=== PATIENT | male | born 1975 | race Caucasian/White ===

== ENCOUNTER 2018-06-05 09:43 | Day surgery (SDC) | payer OTHER ==
[~2018-06-05 09:43] MED LIST: CIPRO 400 MG/200 ML D5W IVPB; LIDOCAINE 2% (SDV) 5 ML INJ; ONDANSETRON 4 MG INJ; PROPOFOL 200 MG INJ; SEVOFLURANE 15 MIN
[2018-06-05] MEDS ORDERED: CIPROFLOXACIN 400 MG in D5W 200 ML IVPB (10:00)
[2018-06-05] MEDS ORDERED: PROPOFOL 20 ML (11:26)
[2018-06-05] MEDS ORDERED: FENTAnyl 50 MCG/ML VIAL (11:27)
[2018-06-05] MEDS ORDERED: MIDAZOLAM 1 MG/ML 2 ML INJ (11:28)
[2018-06-05] MEDS ORDERED: METOCLOPRAMIDE 10 MG INJ (11:29)
[2018-06-05] MEDS ORDERED: LIDOCAINE 2% (SDV) 5 ML INJ (11:34)
[2018-06-05] MEDS ORDERED: BUPIVACAINE 0.25% (MPF) 30 ML INJ (11:36)
[2018-06-05] MEDS ORDERED: hydrALAzine 20 MG INJ IV (13:00)
[2018-06-05] MEDS ORDERED: MEPERIDINE 25 MG INJ IV (13:00)
[2018-06-05] MEDS ORDERED: ONDANSETRON 4 MG INJ IV (13:00)
[2018-06-05] MEDS ORDERED: FENTAnyl 50 MCG/ML VIAL IV ×2 (13:00)
[2018-06-05] MEDS ORDERED: DIPHENHYDRAMINE 50 MG INJ IV (13:00)
[2018-06-05] MEDS ORDERED: LABETALOL HCL 20MG INJ IV (13:00)
[2018-06-05] MEDS ORDERED: HYDROmorphONE 1 MG/5 ML IV SYRINGE IV ×2 (13:00)
[2018-06-05] MEDS: IOHEXOL 300MG/ML 30 ML BTL (13:51)
[2018-06-05] MEDS: HYDROmorphONE 1 MG/5 ML IV SYRINGE IV (14:14)
== END 2018-06-05 15:45 | disposition home or self-care (01) ==
LOC: SDS 09:43
DX: D30.3 Benign neoplasm of bladder (principal); N30.20 Other chronic cystitis without hematuria; K63.2 Fistula of intestine; K57.30 Diverticulosis of large intestine without perforation or abscess without bleeding
CPT/HCPCS: 52234; 74430; 88305

== ENCOUNTER 2018-07-29 09:26 | Inpatient (IN) | payer OTHER ==
[2018-07-29] MEDS: CEFAZOLIN 2 GM/50 ML (PMX) 50 ML IVPB (09:30)
[2018-07-29] MEDS: SOD CHLORIDE 0.9% 1,000 ML IV (10:18)
[2018-07-29] MEDS: BUPIVACAINE 0.5%/EPI (SDV) 30 ML INJ (10:35)
[2018-07-29] MEDS ORDERED: PROPOFOL 20 ML (10:37)
[2018-07-29] MEDS ORDERED: MIDAZOLAM 1 MG/ML 2 ML INJ (10:37)
[2018-07-29] MEDS ORDERED: ROCURONIUM 50 MG INJ (10:37)
[2018-07-29] MEDS ORDERED: SUCCINYLCHOLINE CHLORIDE 100 MG/5 ML SYG IV (10:37)
[2018-07-29] MEDS ORDERED: LIDOCAINE 100 MG SYRINGE ×4 (10:37→16:11)
[2018-07-29] MEDS ORDERED: ONDANSETRON 4 MG INJ (10:38)
[2018-07-29] MEDS ORDERED: METOCLOPRAMIDE 10 MG INJ (10:38)
[2018-07-29] MEDS: AMPICILLIN/SULB 3 GM/NS (PMX) 100 ML IVPB ×2 (11:55→22:08)
[2018-07-29] MEDS ORDERED: FENTAnyl 50 MCG/ML VIAL IV (13:00)
[2018-07-29] MEDS ORDERED: morphine (1 MG/ML) 10ML SYRINGE IV (13:00)
[2018-07-29] MEDS ORDERED: hydrALAzine 20 MG INJ IV (13:00)
[2018-07-29] MEDS ORDERED: HYDROmorphONE 1 MG/5 ML IV SYRINGE IV (13:00)
[2018-07-29] MEDS ORDERED: DIPHENHYDRAMINE 50 MG INJ IV (13:00)
[2018-07-29] MEDS ORDERED: METOCLOPRAMIDE 10 MG INJ IV (13:00)
[2018-07-29] MEDS ORDERED: MEPERIDINE 25 MG INJ IV (13:00)
[2018-07-29] MEDS ORDERED: LORAZEPAM 2 MG INJ IV (13:00)
[2018-07-29] MEDS ORDERED: LABETALOL HCL 20MG INJ IV (13:00)
[2018-07-29] MEDS ORDERED: ONDANSETRON 4 MG INJ IV ×2 (13:00→15:00)
[2018-07-29] MEDS ORDERED: NALOXONE (0.4 MG/ML) INJ IV ×5 (13:30)
[2018-07-29] MEDS ORDERED: GLUCAGON 1 MG INJ (13:33)
[2018-07-29] MEDS ORDERED: BUPIVACAINE 0.25% (MPF) 30 ML INJ (14:08)
[2018-07-29] MEDS ORDERED: FENTAnyl 50 MCG/ML VIAL (14:09)
[2018-07-29] MEDS ORDERED: LIDOCAINE 2% (SDV) 5 ML INJ (14:24)
[2018-07-29] MEDS ORDERED: ACETAMINOPHEN 325 MG TAB PO (15:00)
[2018-07-29] MEDS ORDERED: AMPICILLIN/SULB 3 GM/NS (PMX) 100 ML IVPB (15:00)
[2018-07-29] MEDS: METOCLOPRAMIDE 10 MG INJ IV ×2 (15:28→22:03)
[2018-07-29] MEDS: MIDAZOLAM 1 MG/ML 2 ML INJ IV (16:03)
[2018-07-29] MEDS: ACETAMINOPHEN 1000MG/100ML IV 100 ML IVPB ×2 (16:08→23:16)
[2018-07-29] MEDS: FENTAnyl 2MCG/ML-ROPIV 0.2% 100 ML BAG EPI ×2 (17:14→23:17)
[2018-07-29] MEDS: FAMOTIDINE 20 MG INJ IV (22:03)
[2018-07-29] MEDS: LACTATED RINGER'S 1,000 ML IV ×2 (22:10→22:38)
[2018-07-30] MEDS: METOCLOPRAMIDE 10 MG INJ IV ×4 (04:20→21:13)
[2018-07-30] MEDS: ACETAMINOPHEN 1000MG/100ML IV 100 ML IVPB ×4 (04:21→21:13)
[2018-07-30 05:11] LABS: ADD MAN DIFF? NO
[2018-07-30 05:13] LABS: WHITE BLOOD COUNT 10.8 10^3/ul (4.8-10.8)
[2018-07-30 05:13] LABS: BASOPHILS % 0.3 % (0.0-2.0); EOSINOPHILS # 0.1 10^3/ul (0.0-0.5); EOSINOPHILS % 0.6 % (0.0-7.0); HEMATOCRIT 37.8 % (42.0-52.0); HEMOGLOBIN 12.6 g/dl (14.0-18.0); LYMPHOCYTES # 2.5 10^3/ul (0.8-2.9); LYMPHOCYTES % 22.8 % (15.0-51.0); MEAN CORPUSCULAR HEMOGLOBIN 29.9 pg (29.0-33.0); MEAN CORPUSCULAR HGB CONC 33.3 g/dl (32.0-37.0); MEAN CORPUSCULAR VOLUME 89.8 fl (82.0-101.0); MEAN PLATELET VOLUME 8.8 fl (7.4-10.4); MONOCYTES % 8.9 % (0.0-11.0); NEUTROPHIL # 7.2 10^3/ul (1.6-7.5); NEUTROPHILS % 66.8 % (39.0-77.0); PLATELET COUNT 237 10^3/UL (140-415); RED BLOOD COUNT 4.21 10^6/ul (4.70-6.10); RED CELL DISTRIBUTION WIDTH 13.1 % (11.5-14.5)
[2018-07-30 05:31] LABS: ANION GAP 10 (5-13); BLOOD UREA NITROGEN 8 mg/dl (7-20); CARBON DIOXIDE 25 mmol/L (21-31); CHLORIDE 102 mmol/L (97-110); CREATININE 0.88 mg/dl (0.61-1.24); Estimated GFR > 60 mL/min (>60); GLUCOSE 75 mg/dl (70-220); MAGNESIUM 1.7 mg/dl (1.7-2.5); POTASSIUM 3.6 mmol/L (3.5-5.1); SODIUM 137 mmol/L (135-144)
[2018-07-30] MEDS: AMPICILLIN/SULB 3 GM/NS (PMX) 100 ML IVPB ×3 (05:39→16:25)
[2018-07-30] MEDS: LACTATED RINGER'S 1,000 ML IV (05:40)
[2018-07-30] MEDS: FENTAnyl 2MCG/ML-ROPIV 0.2% 100 ML BAG EPI ×3 (07:15→21:50)
[2018-07-30] MEDS: FAMOTIDINE 20 MG INJ IV ×2 (08:42→21:13)
[2018-07-30] MEDS: DOCUSATE SODIUM 100 MG CAP PO ×4 (09:00→21:13)
[2018-07-30] MEDS: KETOROLAC 15 MG INJ IV (13:35)
[2018-07-30] MEDS: DEXTROSE 5%-0.45% NACL 1,000 ML IV ×2 (13:42→19:00)
[2018-07-30] MEDS ORDERED: KETOROLAC 30 MG INJ IV (16:30)
[2018-07-30] MEDS ORDERED: LORAZEPAM 1 MG TAB PO (17:30)
[2018-07-30] MEDS ORDERED: KETOROLAC 15 MG INJ IV (19:00)
[2018-07-31] MEDS: DEXTROSE 5%-0.45% NACL 1,000 ML IV ×2 (00:34→09:16)
[2018-07-31] MEDS: ACETAMINOPHEN 1000MG/100ML IV 100 ML IVPB ×2 (03:21→09:00)
[2018-07-31] MEDS: METOCLOPRAMIDE 10 MG INJ IV ×4 (03:21→22:31)
[2018-07-31] MEDS: FENTAnyl 2MCG/ML-ROPIV 0.2% 100 ML BAG EPI ×3 (04:14→17:16)
[2018-07-31 05:24] LABS: ADD MAN DIFF? NO
[2018-07-31 05:27] LABS: BASOPHILS % 0.4 % (0.0-2.0); EOSINOPHILS # 0.2 10^3/ul (0.0-0.5); EOSINOPHILS % 2.1 % (0.0-7.0); HEMATOCRIT 37.7 % (42.0-52.0); HEMOGLOBIN 12.6 g/dl (14.0-18.0); LYMPHOCYTES # 1.8 10^3/ul (0.8-2.9); LYMPHOCYTES % 21.2 % (15.0-51.0); MEAN CORPUSCULAR HEMOGLOBIN 29.6 pg (29.0-33.0); MEAN CORPUSCULAR HGB CONC 33.4 g/dl (32.0-37.0); MEAN CORPUSCULAR VOLUME 88.5 fl (82.0-101.0); MONOCYTE # 0.8 10^3/ul (0.3-0.9); MONOCYTES % 8.9 % (0.0-11.0); NEUTROPHIL # 5.7 10^3/ul (1.6-7.5); PLATELET COUNT 223 10^3/UL (140-415); RED BLOOD COUNT 4.26 10^6/ul (4.70-6.10)
[2018-07-31 05:27] LABS: WHITE BLOOD COUNT 8.5 10^3/ul (4.8-10.8)
[2018-07-31 05:44] LABS: ANION GAP 9 (5-13); BLOOD UREA NITROGEN 3 mg/dl (7-20); CARBON DIOXIDE 27 mmol/L (21-31); CHLORIDE 103 mmol/L (97-110); CREATININE 0.76 mg/dl (0.61-1.24); Estimated GFR > 60 mL/min (>60); GLUCOSE 106 mg/dl (70-220); POTASSIUM 3.2 mmol/L (3.5-5.1); SODIUM 139 mmol/L (135-144)
[2018-07-31] MEDS: DOCUSATE SODIUM 100 MG CAP PO ×3 (08:58→22:29)
[2018-07-31] MEDS: FAMOTIDINE 20 MG INJ IV ×2 (08:59→20:27)
[2018-07-31] MEDS: 1/2 NS + KCL 20 MEQ 1,000 ML IV (15:27)
[2018-07-31] MEDS: POTASSIUM CHLORIDE 100 ML IVPB (17:40)
[2018-07-31] MEDS: HYDROCODONE/APAP (5/325) TAB PO ×2 (18:42→23:44)
[2018-08-01] MEDS: METOCLOPRAMIDE 10 MG INJ IV ×4 (03:25→21:07)
[2018-08-01 05:11] LABS: ADD MAN DIFF? NO
[2018-08-01 05:18] LABS: WHITE BLOOD COUNT 8.5 10^3/ul (4.8-10.8)
[2018-08-01 05:18] LABS: BASOPHILS % 0.4 % (0.0-2.0); EOSINOPHILS # 0.4 10^3/ul (0.0-0.5); EOSINOPHILS % 4.3 % (0.0-7.0); HEMATOCRIT 39.6 % (42.0-52.0); HEMOGLOBIN 13.1 g/dl (14.0-18.0); LYMPHOCYTES # 2.4 10^3/ul (0.8-2.9); MEAN CORPUSCULAR HEMOGLOBIN 29.2 pg (29.0-33.0); MEAN CORPUSCULAR HGB CONC 33.1 g/dl (32.0-37.0); MEAN CORPUSCULAR VOLUME 88.4 fl (82.0-101.0); MEAN PLATELET VOLUME 8.9 fl (7.4-10.4); MONOCYTE # 0.7 10^3/ul (0.3-0.9); MONOCYTES % 8.5 % (0.0-11.0); NEUTROPHILS % 58.6 % (39.0-77.0); PLATELET COUNT 242 10^3/UL (140-415); RED BLOOD COUNT 4.48 10^6/ul (4.70-6.10); RED CELL DISTRIBUTION WIDTH 12.7 % (11.5-14.5)
[2018-08-01 05:51] LABS: ANION GAP 6 (5-13); BLOOD UREA NITROGEN 4 mg/dl (7-20); CALCIUM 8.4 mg/dl (8.4-10.2); CARBON DIOXIDE 28 mmol/L (21-31); CHLORIDE 106 mmol/L (97-110); CREATININE 0.69 mg/dl (0.61-1.24); Estimated GFR > 60 mL/min (>60); GLUCOSE 93 mg/dl (70-220); POTASSIUM 3.5 mmol/L (3.5-5.1); SODIUM 140 mmol/L (135-144)
[2018-08-01] MEDS: HYDROCODONE/APAP (5/325) TAB PO ×4 (06:13→19:01)
[2018-08-01] MEDS: 1/2 NS + KCL 20 MEQ 1,000 ML IV (07:26)
[2018-08-01] MEDS: DOCUSATE SODIUM 100 MG CAP PO ×3 (09:06→21:07)
[2018-08-01] MEDS: FAMOTIDINE 20 MG INJ IV (09:10)
[2018-08-01] MEDS: FAMOTIDINE 20 MG TAB PO (21:08)
[2018-08-02] MEDS: HYDROCODONE/APAP (5/325) TAB PO ×2 (00:20→09:13)
[2018-08-02] MEDS: METOCLOPRAMIDE 10 MG INJ IV ×2 (03:45→08:58)
[2018-08-02 06:12] LABS: ADD MAN DIFF? NO
[2018-08-02 06:19] LABS: WHITE BLOOD COUNT 9.4 10^3/ul (4.8-10.8)
[2018-08-02 06:19] LABS: BASOPHILS % 0.3 % (0.0-2.0); EOSINOPHILS # 0.6 10^3/ul (0.0-0.5); EOSINOPHILS % 6.2 % (0.0-7.0); HEMOGLOBIN 14.5 g/dl (14.0-18.0); LYMPHOCYTES # 2.5 10^3/ul (0.8-2.9); LYMPHOCYTES % 26.9 % (15.0-51.0); MEAN CORPUSCULAR HEMOGLOBIN 29.8 pg (29.0-33.0); MEAN CORPUSCULAR HGB CONC 33.7 g/dl (32.0-37.0); MEAN CORPUSCULAR VOLUME 88.3 fl (82.0-101.0); MEAN PLATELET VOLUME 9.1 fl (7.4-10.4); MONOCYTE # 0.8 10^3/ul (0.3-0.9); MONOCYTES % 8.8 % (0.0-11.0); NEUTROPHIL # 5.4 10^3/ul (1.6-7.5); NEUTROPHILS % 57.5 % (39.0-77.0); PLATELET COUNT 277 10^3/UL (140-415); RED BLOOD COUNT 4.87 10^6/ul (4.70-6.10)
[2018-08-02 07:09] LABS: ANION GAP 4 (5-13); BLOOD UREA NITROGEN 10 mg/dl (7-20); CALCIUM 8.9 mg/dl (8.4-10.2); CARBON DIOXIDE 30 mmol/L (21-31); CHLORIDE 107 mmol/L (97-110); CREATININE 0.86 mg/dl (0.61-1.24); Estimated GFR > 60 mL/min (>60); GLUCOSE 90 mg/dl (70-220); POTASSIUM 3.7 mmol/L (3.5-5.1); SODIUM 141 mmol/L (135-144)
[2018-08-02] MEDS: FAMOTIDINE 20 MG TAB PO (08:58)
[2018-08-02] MEDS: DOCUSATE SODIUM 100 MG CAP PO (08:58)
== END 2018-08-02 13:50 | disposition home or self-care (01) | DRG 654 ==
LOC: REC 09:26 → MS1 17:32
PROC: 0TBB0ZZ Excision of Bladder, Open Approach (ICD-10-PCS; principal; 2018-07-29 11:00)
PROC: 0DBN0ZZ Excision of Sigmoid Colon, Open Approach (ICD-10-PCS; 2018-07-29 11:00)
PROC: 0DJD8ZZ Inspection of Lower Intestinal Tract, Via Natural or Artificial Opening Endoscopic (ICD-10-PCS; 2018-07-29 11:00)
DX: N32.1 Vesicointestinal fistula (principal); K57.32 Diverticulitis of large intestine without perforation or abscess without bleeding
CPT/HCPCS: 80048; 83735; 85025; 86850; 86900; 86901; 87086; 88307; 97116; 97161; 97530